=== PATIENT | male | born 1950 | race Caucasian/White ===

== ENCOUNTER 2019-11-18 08:29 | Outpatient (CLI) | payer MEDICARE ==
[2019-11-18] VITALS (7 sets, daily range): BP systolic 80–124; BP diastolic 44–61
[~2019-11-18] VITALS: Ht 175.3 cm; Wt 111.6 kg
[2019-11-18 08:53] LABS: BASO % 0 % (0-3); EOS # 0.5 x10^3/uL (0.0-0.7); EOS % 8 % (0-3); HEMATOCRIT 34.9 % (39.0-53.0); HEMOGLOBIN 11.6 g/dL (13.0-17.5); LYMPH # 0.9 x10^3/uL (1.0-4.8); LYMPH % 15 % (24-48); MEAN CORPUSCULAR HEMOGLOBIN 30 pg (25-35); MEAN CORPUSCULAR HGB CONC 33 g/dL (31-37); MEAN CORPUSCULAR VOLUME 91 fL (79-100); MONO # 0.4 x10^3/uL (0.0-1.1); MONO % 6 % (0-9); NEUT # 4.6 x10^3/uL (1.8-7.7); NEUT % 71 % (31-73); PLATELET COUNT 216 x10^3/uL (140-400); RED BLOOD COUNT 3.83 x10^6/uL (4.30-5.70); RED CELL DISTRIBUTION WIDTH 16.3 % (11.5-14.5); WHITE BLOOD COUNT 6.4 x10^3/uL (4.0-11.0)
[2019-11-18] MEDS ORDERED: CURC10PO MC (09:17)
[2019-11-18] MEDS ORDERED: ASPI81TA59 PO (09:17)
[2019-11-18] MEDS ORDERED: PANT40TA77 PO (09:17)
[2019-11-18] MEDS ORDERED: ATOR40TA59 PO (09:17)
[2019-11-18] MEDS ORDERED: ISOS30TA4 PO (09:17)
[2019-11-18] MEDS ORDERED: IBUP-1007 PO (09:17)
[2019-11-18] MEDS ORDERED: CLOP75TA PO (09:17)
[2019-11-18] MEDS ORDERED: MIDAZOLAM HCL/PF 2 MG/2 ML VIAL. ONE (10:05)
[2019-11-18] MEDS ORDERED: fentaNYL PF VIAL 100 MCG/2 ML VIAL ONE (10:06)
[2019-11-18] MEDS ORDERED: LIDOCAINE 1%/EPI 1:100,000 20 ML VIAL. ONE (10:08)
[2019-11-18] MEDS ORDERED: MIDAZOLAM HCL/PF 2 MG/2 ML VIAL. IV ONE (10:30)
[2019-11-18] MEDS ORDERED: LIDOCAINE 1%/EPI 1:100,000 20 ML VIAL. SQ ONE (10:30)
[2019-11-18] MEDS ORDERED: fentaNYL PF VIAL 100 MCG/2 ML VIAL IV ONE (10:30)
--- NOTE | 2019-11-18 12:14 | NUR ---
Discharge Note: SUKHJINDER DILLON Discharge instructions and discharge home medications reviewed with Patient and a copy given. All questions have been answered and understanding verbalized. The following instructions and handouts were given: implanted port instructions and adult moderate sedation Discontinued lines and drains: Peripheral IV intact. Patient discharged to Home or Self Care withSpousevia Wheelchair
--- NOTE | 2019-11-19 07:49 | RAD ---
Procedure: Ultrasound and fluoroscopically guided placement of right internal jugular power port.. 11/19/2019 5:45 AM Clinical Indication: CHEMOTHERAPY Sedation: Conscious sedation was administered for 25 minutes. The patient was monitored by a qualified independent observer throughout the time of sedation. Please refer to the medical record for exact doses of medications utilized to achieve moderate sedation. Fluoroscopy time: 2 minutes Dose area product: 2 Gycm2 Consent: The procedure was explained in its entirety to the patient or the patients designated marketing development representative by a member of the treatment team, including a discussion of the risks, benefits and commonly accepted alternatives to the procedure, as well as the expected consequences of no therapy whatsoever. Discussion of the risks included, but was not limited to, those that are most frequent and those that are rare but possibly severe or life-threatening, as well as the possibility of unforeseen complications. Technique and Findings: All elements of maximal sterile barrier technique including the use of a cap, mask, sterile gown, sterile gloves, large sterile sheet, appropriate hand hygiene, and 2% chlorhexidine for cutaneous antisepsis (or acceptable alternative antiseptic per current guidelines) were followed for this procedure. Following informed consent, and a timeout procedure, the patient was prepped and draped in the usual sterile fashion. Ultrasound interrogation of the right neck revealed patency and compressibility of the right internal jugular vein. A 21-gauge micropuncture was then used to gain access to this vein under ultrasound guidance. A hard copy ultrasound image was recorded. The needle was exchanged over a wire for a sheath. A 1 inch incision was made several centimeters inferior to the venotomy site. A catheter was tunneled from this site dermatotomy site in the neck. Catheter was advanced through peel-away sheath such that its tip was in the proximal right atrium with the patient supine. The catheter was trimmed to length and connected to the port reservoir. The port was found to flush and aspirate normally. The wound was closed in layers using 4-0 Vicryl suture. Sterile dressings were applied. Impression: Successful ultrasound and fluoroscopically guided placement of a right internal jugular PowerPort
== END 2019-11-18 12:15 | disposition home or self-care (01) ==
LOC: INTRAD 08:29
PROVIDERS: ATTEND Internal Medicine Hematology & Oncology
DX: Z45.2 Encounter for adjustment and management of vascular access device (principal); C15.5 Malignant neoplasm of lower third of esophagus; Z79.899 Other long term (current) drug therapy; Z79.01 Long term (current) use of anticoagulants
CPT/HCPCS: 36415; 36561; 76937; 77001; 85025; 85610; 85730; 99152; 99153; C1751; C1892; J0696; J2250; J3010; J3490; J0690

== ENCOUNTER 2021-01-24 08:18 | Outpatient (CLI) | payer MEDICARE, OTHER ==
[~2021-01-24] VITALS: Ht 175.3 cm; Wt 95.0 kg
[2021-01-24] VITALS (10 sets, daily range): BP systolic 106–124; BP diastolic 47–74
[~2021-01-24 08:18] MED LIST: ASPI81TA59 PO; ATOR40TA59 PO; CLOP75TA PO; CURC10PO MC; IBUP-1007 PO; ISOS30TA68 PO; PANT40TA77 PO
[2021-01-24 09:00] LABS: BASO % 0 % (0-3); EOS % 0 % (0-3); HEMOGLOBIN 11.2 g/dL (13.0-17.5); LYMPH # 0.3 x10^3/uL (1.0-4.8); LYMPH % 7 % (24-48); MEAN CORPUSCULAR HEMOGLOBIN 37 pg (25-35); MEAN CORPUSCULAR HGB CONC 33 g/dL (31-37); MEAN CORPUSCULAR VOLUME 111 fL (79-100); MONO # 0.2 x10^3/uL (0.0-1.1); MONO % 5 % (0-9); NEUT # 3.6 x10^3/uL (1.8-7.7); NEUT % 87 % (31-73); PLATELET COUNT 65 x10^3/uL (140-400); RED BLOOD COUNT 3.07 x10^6/uL (4.30-5.70); RED CELL DISTRIBUTION WIDTH 25.4 % (11.5-14.5); WHITE BLOOD COUNT 4.1 x10^3/uL (4.0-11.0)
[2021-01-24 09:07] LABS: CALCIUM 8.6 mg/dL (8.5-10.1); CREATININE 0.9 mg/dL (0.7-1.3); GFR 83.2; POTASSIUM 4.2 mmol/L (3.5-5.1)
[2021-01-24] MEDS ORDERED: morphine concentrate PO (09:12)
[2021-01-24] MEDS ORDERED: ONDA4TAB12 PO (09:12)
[2021-01-24] MEDS ORDERED: HYDR-2761 PO (09:12)
[2021-01-24] MEDS ORDERED: TAMS0.4C97 PO (09:12)
[2021-01-24] MEDS ORDERED: OXYC5CAP PO (09:12)
[2021-01-24] MEDS ORDERED: PRED20TA PO (09:12)
[2021-01-24] MEDS ORDERED: ALBUMIN HUMAN 25% 200 ML IV ONE (10:36)
[2021-01-24] MEDS ORDERED: ALBUMIN HUMAN 25% 100 ML IV ONE ×4 (10:45→11:15)
[2021-01-24 11:14] LABS: % BANDS 2 % (0-9); % LYMPHS 4 % (24-48); % MONOS 3 % (0-10); % SEGS 91 % (35-66)
[2021-01-24 11:15] LABS: PLT ESTIMATE DECREASED (ADEQUATE)
[2021-01-24 11:16] LABS: ANISOCYTOSIS MOD
--- NOTE | 2021-01-24 12:40 | NUR ---
Discharge Note: SUKHJINDER DILLON Discharge instructions and discharge home medications reviewed with Patient and a copy given. All questions have been answered and understanding verbalized. The following instructions and handouts were given: paracentesis Discontinued lines and drains: Port A Cath intact. Patient discharged to Home or Self Care withSpousevia Wheelchair
--- NOTE | 2021-01-24 12:57 | RAD ---
Ultrasound-guided paracentesis. 01/24/2021 12:55 PM Indication: Reason: ASCITES / Spl. Instructions: Total Fluid:11.8L / History: Discussion: The risks and benefits of the procedure including but not limited to bleeding, hypotensio n, and infection were discussed the patient. Informed consent was obtained. Ultrasound evaluation was performed demonstrating ascites, with the largest pocket and the right lower quadrant. The right low er quadrant was prepped and draped in sterile fashion. 1% lidocaine without epinephrine was administe red for local anesthesia. Under direct ultrasound guidance a 5 [place] Yueh needle was advanced into t he peritoneal space. Serous fluid was aspirated. The catheter was connected to suction and approximat cameron 12 liters of fluid was removed. The catheter was then removed and manual pressure was held to ac hieve hemostasis. A sterile dressing was applied. Impression: Ultrasound-guided paracentesis with removal of 12 L of ascites Electronically signed by: Dominick Lebron MD (01/24/2021 12:55 PM) [id number]
== END 2021-01-24 12:41 | disposition home or self-care (01) ==
LOC: INTRAD 08:18
PROVIDERS: ATTEND Internal Medicine
DX: R18.8 Other ascites (principal); I10 Essential (primary) hypertension; E78.00 Pure hypercholesterolemia, unspecified; K21.00 Gastro-esophageal reflux disease with esophagitis, without bleeding; I25.10 Atherosclerotic heart disease of native coronary artery without angina pectoris; Z87.891 Personal history of nicotine dependence; Z92.21 Personal history of antineoplastic chemotherapy; Z95.5 Presence of coronary angioplasty implant and graft; Z98.890 Other specified postprocedural states
CPT/HCPCS: 36415; 49083; 80048; 85007; 85025; P9046

== ENCOUNTER 2021-02-07 08:23 | Outpatient (CLI) | payer OTHER ==
[2021-02-07] VITALS (9 sets, daily range): BP systolic 105–117; BP diastolic 45–62
[~2021-02-07] VITALS: Ht 175.3 cm; Wt 85.5 kg
[~2021-02-07 08:23] MED LIST changes: +HYDR-2761 PO; +ONDA4TAB12 PO; +OXYC5CAP PO; +PRED20TA PO; +TAMS0.4C97 PO; +morphine concentrate PO
[2021-02-07] MEDS ORDERED: ALBUMIN HUMAN 25% 100 ML IV ONE ×5 (09:29→10:44)
[2021-02-07] MEDS ORDERED: HEPARIN PF 500 UNIT/5 ML DISP.SYRIN. IVP ONE (10:52)
--- NOTE | 2021-02-07 12:11 | NUR ---
Discharge Note: SUKHJINDER DILLON Discharge instructions and discharge home medications reviewed with Patient and spouse; and a copy given. All questions have been answered and understanding verbalized. The following instructions and handouts were given: Paracentesis Discontinued lines and drains: Right chest port packed with heparin flush and then deaccessed intact. Patient discharged to home with spouse via personal vehicle.
--- NOTE | 2021-02-07 12:26 | RAD ---
Ultrasound-guided paracentesis. 02/07/2021 12:23 PM Indication: Reason: Ascites, TOTAL FLUID REMOVED 10 LITERS Discussion: The risks and benefits of the procedure including but not limited to bleeding, hypotensio n, and infection were discussed the patient. Informed consent was obtained. Ultrasound evaluation was performed demonstrating ascites, with the largest pocket and the right lower quadrant. The right low er quadrant was prepped and draped in sterile fashion. 1% lidocaine without epinephrine was administe red for local anesthesia. Under direct ultrasound guidance a 5 [place] Yueh needle was advanced into t he peritoneal space. Serous fluid was aspirated. The catheter was connected to suction and approximat cameron 10 liters of fluid was removed. The catheter was then removed and manual pressure was held to ac hieve hemostasis. A sterile dressing was applied. Impression: Ultrasound-guided paracentesis with removal of 10 L of ascites Electronically signed by: Dominick Lebron MD (02/07/2021 12:24 PM) [id number]
== END 2021-02-07 11:50 | disposition home or self-care (01) ==
LOC: INTRAD 08:23
PROVIDERS: ATTEND Internal Medicine
DX: R18.8 Other ascites (principal); K76.9 Liver disease, unspecified; I10 Essential (primary) hypertension; E78.00 Pure hypercholesterolemia, unspecified; I25.10 Atherosclerotic heart disease of native coronary artery without angina pectoris; K21.00 Gastro-esophageal reflux disease with esophagitis, without bleeding; Z87.891 Personal history of nicotine dependence; Z92.21 Personal history of antineoplastic chemotherapy; Z95.5 Presence of coronary angioplasty implant and graft; Z98.890 Other specified postprocedural states
CPT/HCPCS: 49083; P9046